=== PATIENT | male | born 1980 | race African-American/Black ===

== ENCOUNTER 2021-12-20 20:07 | Emergency (ER) | payer OTHER ==
[2021-12-20 20:31] VITALS: BP 111/72; PULSE 89; TEMP 98.6; BMI 28.8
[2021-12-20] MEDS ORDERED: DEXAMETHASONE SOD PHOSPHATE 10 MG/1 ML VIAL IVPUSH ONE (22:24)
[2021-12-20] MEDS ORDERED: DEXAMETHASONE SOD PHOSPHATE 10 MG/1 ML VIAL ONE (22:33)
[2021-12-20 22:58] LABS: BASO % 1.3 % (0-2.0); EOS % 2.7 % (0-4.5); HEMATOCRIT 43.8 % (35.4-49); HEMOGLOBIN 14.9 GM/dL (11.7-16.9); LYMPH % 41.6 % (8-40); MCH 32.8 pg (25.7-33.7); MEAN CELL VOLUME 96.5 fl (80-96); MEAN PLT VOLUME 6.7 fl (7.5-11.1); NEUT % 45.4 % (42.8-82.8); PLATELET COUNT 256 10^3/uL (134-434); RBC 4.54 M/mm3 (4.00-5.60); RDW 14.1 % (11.9-15.9)
[2021-12-20 23:14] LABS: CALCIUM 9.1 mg/dL (8.5-10.1)
[2021-12-20 23:15] LABS: BLOOD UREA NITROGEN 17.4 mg/dL (7-18)
[2021-12-20 23:18] LABS: CREATININE 1.1 mg/dL (0.55-1.3)
[2021-12-20 23:20] LABS: BILIRUBIN,TOTAL 0.5 mg/dL (0.2-1); TOT PROT 7.2 g/dl (6.4-8.2)
[2021-12-20] MEDS ORDERED: RACEPINEPHRINE IH SOL 2.25% 11.25 MG/0.5 ML VIAL IH ONE (23:35)
[2021-12-20] MEDS ORDERED: RACEPINEPHRINE IH SOL 2.25% 11.25 MG/0.5 ML VIAL NEB ONE ×2 (23:36→23:45)
[2021-12-21] MEDS ORDERED: LIDOCAINE VISCOUS 2% ORAL/TOP 15 ML UNIT-DOSE CUP MM ONE (00:04)
[2021-12-21] MEDS ORDERED: LIDOCAINE VISCOUS 2% ORAL/TOP 15 ML UNIT-DOSE CUP ONE (00:05)
== END 2021-12-21 00:55 | disposition short-term general hospital (02) ==
LOC: JER 20:07
PROC: 3E033GC Introduction of Other Therapeutic Substance into Peripheral Vein, Percutaneous Approach (ICD-10-PCS; principal; 2021-12-20)
DX: R09.89 Other specified symptoms and signs involving the circulatory and respiratory systems (principal)
CPT/HCPCS: 36415; 70360-TC-FY; 70490-TC; 80053; 84484; 85025; 99285-25; C9803; J1100; U0003; U0005

== ENCOUNTER 2024-06-26 16:59 | Emergency (ER) | payer OTHER ==
[2024-06-26 17:05] VITALS: TEMP 98.2; BMI 28.0
[2024-06-26] MEDS ORDERED: METHOCARBAMOL 500 MG TABLET ONE (18:15)
[2024-06-26] MEDS ORDERED: LIDOCAINE 5% TOPICAL PATCH ONE (18:16)
[2024-06-26] MEDS ORDERED: ACETAMINOPHEN 325 MG TABLET (FP) ONE (18:16)
[2024-06-26] MEDS ORDERED: DIPHTH,PERTUSS(ACELL),TET 0.5 ML DISP.SYRIN IM ONE (18:17)
[2024-06-26] MEDS: LIDOCAINE 5% TOPICAL PATCH TP ONE (18:28)
[2024-06-26] MEDS: ACETAMINOPHEN 500 MG TABLET (FP) PO ONE (18:29)
[2024-06-26] MEDS: METHOCARBAMOL 500 MG TABLET PO ONE ×2 (18:29→18:44)
[2024-06-26] MEDS: DIPHTH,PERTUSS(ACELL),TET 0.5 ML DISP.SYRIN IM ONE (18:32)
[2024-06-26] MEDS: ACETAMINOPHEN 325 MG TABLET (FP) PO ONE (18:45)
[2024-06-26 19:23] LABS: INR 0.93 (0.83-1.09); PROTHROMBIN TIME (PATIENT) 10.7 SEC (9.7-13.0)
[2024-06-26 19:25] LABS: ACTIVATED PTT 30.5 SECONDS (25.2-36.5); POTASSIUM 4.1 mmol/L (3.5-5.1)
[2024-06-26 19:26] LABS: HEMATOCRIT 44.8 % (35.4-49); HEMOGLOBIN 14.7 GM/dL (11.7-16.9); MCH 32.5 pg (25.7-33.7); MCHC 32.9 g/dl (32.0-35.9); MEAN PLT VOLUME 7.6 fl (7.5-11.1); PLATELET COUNT 219 10^3/uL (134-434); RBC 4.53 M/mm3 (4.00-5.60); WHITE BLOOD COUNT 13.1 K/mm3 (4.0-10.0)
[2024-06-26 19:27] LABS: ALBUMIN 3.8 g/dl (3.4-5.0); CALCIUM 9.3 mg/dL (8.5-10.1)
[2024-06-26 19:28] LABS: BLOOD UREA NITROGEN 21.6 mg/dL (7-18)
[2024-06-26 19:31] LABS: CREATININE 1.3 mg/dL (0.55-1.3)
[2024-06-26 19:32] LABS: BILIRUBIN,TOTAL 0.8 mg/dL (0.2-1); TOT PROT 6.9 g/dl (6.4-8.2)
[2024-06-26 19:52] LABS: ANISOCYTOSIS 1+; MACROCYTOSIS 0
[2024-06-26 19:53] LABS: PLATELET ESTIMATE ADEQUATE
[2024-06-26] MEDS ORDERED: morphine SULFATE 4 MG/ML VIAL ONE (20:41)
[2024-06-26] MEDS: morphine SULFATE 4 MG/ML VIAL IVPUSH ONE (20:45)
[2024-06-26] MEDS ORDERED: LIDOCAINE HCL 2% (20ML MULTI-DOSE VIAL) ONE (21:42)
[2024-06-26] MEDS: LIDOCAINE HCL 2% (50ML VIAL) SQ ONE (21:53)
[2024-06-26] MEDS: LIDOCAINE PATCH REMOVAL MC SCH (22:01)
[2024-06-26 23:38] VITALS: PULSE 54
[2024-06-27 03:05] VITALS: BP 151/96
[2024-06-27 03:17] VITALS: RESP 17
== END 2024-06-27 04:20 | disposition short-term general hospital (02) ==
LOC: JER 16:59
PROC: 3E033NZ Introduction of Analgesics, Hypnotics, Sedatives into Peripheral Vein, Percutaneous Approach (ICD-10-PCS; principal; 2024-06-26)
PROC: 3E0234Z Introduction of Serum, Toxoid and Vaccine into Muscle, Percutaneous Approach (ICD-10-PCS; 2024-06-26)
PROC: 0W983ZZ Drainage of Chest Wall, Percutaneous Approach (ICD-10-PCS; 2024-06-26)
DX: S27.0XXA Traumatic pneumothorax, initial encounter (principal); S22.41XA Multiple fractures of ribs, right side, initial encounter for closed fracture; R51.9 Headache, unspecified; H53.8 Other visual disturbances; Z20.822 Contact with and (suspected) exposure to COVID-19; Z23 Encounter for immunization; Y04.8XXA Assault by other bodily force, initial encounter
CPT/HCPCS: 0241U-QW; 32551; 36415; 70450-TC; 70486-TC; 71045-TC-FY; 71250-TC; 72125-TC; 72170-TC-FY; 76604; 76705-TC; 80053; 85025; 85610; 85730; 86850; 86900; 86901; 90471; 90715; 93308; 96374; 99285-25